=== PATIENT | male | born 1965 | race African-American/Black ===

== ENCOUNTER 2019-01-04 17:44 | Emergency (ER) | payer SELFPAY ==
[~2019-01-04] VITALS: Ht 175.3 cm; Wt 86.0 kg
[2019-01-04 20:55] VITALS: BP 130/80
== END 2019-01-04 20:56 | disposition home or self-care (01) ==
LOC: ER 17:44
DX: T16.2XXA Foreign body in left ear, initial encounter (principal); X58.XXXA Exposure to other specified factors, initial encounter; Y93.89 Activity, other specified; Y92.89 Other specified places as the place of occurrence of the external cause; Y99.8 Other external cause status
CPT/HCPCS: 69200; 99284